=== PATIENT | female | born 1935 | race Caucasian/White ===

== ENCOUNTER 2017-01-17 07:40 | Inpatient (IN) | payer MEDICARE, MEDICAID ==
[2017-01-17 08:57] LABS: Hematocrit 38 % (35-47); Hemoglobin 12.1 g/dl (12.0-16.0); Mean Corpuscular HGB Conc 32 g/dl (31-36); Mean Corpuscular Hemoglobin 24 pg (27-31); Mean Corpuscular Volume 77 fL (80-97); Mean Platelet Volume 9 um3 (7.4-10.4); Red Blood Count 4.95 10^6/ul (4.0-5.4); Red Cell Distribution Width 17 % (10.5-15); White Blood Count 13.1 10^3/ul (3.5-10.8)
[2017-01-17 09:10] LABS: Albumin 3.6 g/dL (3.2-5.2); BUN/Creatinine Ratio 17.5 (8-20); Calcium 9.2 mg/dL (8.6-10.3); EGFR African American 70.5 (>60); EGFR Non-African American 54.8 (>60); Globulin 3.1 g/dL (2-4); Potassium 3.9 mmol/L (3.5-5.0); Total Bilirubin 0.6 mg/dL (0.2-1.0); Total Protein 6.7 g/dL (6.4-8.9)
[2017-01-17 09:11] LABS: Troponin I 0.01 ng/mL (<0.04)
[2017-01-17 09:18] LABS: Urine Bacteria 1+ (Absent); Urine Bilirubin Negative (Negative); Urine Glucose Negative (Negative); Urine Nitrite Negative (Negative)
--- NOTE | 2017-01-17 09:39 | RAD ---
Indication: Stroke. CT of the brain was performed without IV contrast. Ventricular structures are midline. No midline shift is noted. There is atrophy noted. Periventricular lucency consistent with chronic ischemic White matter change is noted. No intracranial mass or hemorrhage is noted. Lacunar infarct is noted in the right basal ganglia which was present previously. There is patchy area of low density left thalamus as well. When compared to previous exam of September 29, 2015. Ventricular lucencies appear similar. Bony calvaria and mastoid air cells are unremarkable. IMPRESSION: Chronic ischemic changes without change since previous exam of September 21, 2015. No evidence of hemorrhage is noted.
--- NOTE | 2017-01-17 10:47 | ED ---
Mary Kate Matias Michael, scribed for Moy Watkins MD on 01/17/17 at 0814 . Altered Mental Status - HPI Summary HPI Summary: 81 y/o female was BIBA to the ED presenting with AMS that started one day ago. The pt has had acute left sided weakness that started one day ago. She was evaluated by a the [facility] doctor. The ED is awaiting the results of her Urine and CBC that the [facility] conducted. The pt responds to voice and follow commands, but she cannot move her left side. The PMHx is significant for unspecified CVA and CAD. - History Of Current Complaint Chief Complaint: EDAltMentalStatus Stated Complaint: AMS Time Seen by Provider: 01/17/17 08:12 Hx Obtained From: Patient, Medical Records Hx From Patient Unobtainable Due To: Altered Mental Status Onset/Duration: Suddenly Timing: Constant, Lasting Days Severity Initially: Moderate Severity Currently: Moderate Character: Responsiveness Aggravating Factor(s): Unknown Alleviating Factor(s): Nothing Associated Signs And Symptoms: Positive: Weakness - Allergies/Home Medications Allergies/Adverse Reactions: Allergies Allergy/AdvReac Type Severity Reaction Status Date / Time Diltiazem [Cardizem] Allergy Unknown Verified 09/21/16 11:40 Reaction Details PMH/Surg Hx/FS Hx/Imm Hx Endocrine/Hematology History: Reports: Hx Diabetes - NIDDM, Hx Thyroid Disease Cardiovascular History: Reports: Hx Congestive Heart Failure, Hx Coronary Artery Disease, Hx Hypercholesterolemia, Hx Hypertension Respiratory History: Reports: Hx Chronic Obstructive Pulmonary Disease (COPD) Musculoskeletal History: Reports: Hx Back Problems Sensory History: Reports: Hx Contacts or Glasses Opthamlomology History: Reports: Hx Contacts or Glasses - Surgical History Surgery Procedure, Year, and Place: hysterectomy, tonsilectomy, left inguinal hernia repair, Hx tracheostomy Infectious Disease History: Unable to Obtain/Confirm Infectious Disease History: Denies: Traveled Outside the [place] in Last 30 Days - Family History Known Family History: Positive: Cardiac Disease - Social History Occupation: Retired Lives: At [facility] Alcohol Use: None Substance Use Type: Reports: None Smoking Status (MU): Never Smoked Tobacco Review of Systems Negative: Fever Positive: Weakness All Other Systems Reviewed And Are Negative: Yes Physical Exam Triage Information Reviewed: Yes Vital Signs On Initial Exam: Initial Vitals Temp Pulse Resp BP Pulse Ox 98.8 F 107 20 135/73 100 01/17/17 07:43 01/17/17 07:43 01/17/17 07:43 01/17/17 07:43 01/17/17 07:43 Vital Signs Reviewed: Yes Appearance: Positive: Well-Appearing, No Pain Distress, Well-Nourished Skin: Positive: Warm, Skin Color Reflects Adequate Perfusion, Dry Head/Face: Positive: Normal Head/Face Inspection Eyes: Positive: Normal ENT: Positive: Normal ENT inspection Neck: Positive: Supple, Nontender Respiratory/Lung Sounds: Positive: Clear to Auscultation, Breath Sounds Present Cardiovascular: Positive: Tachycardia Abdomen Description: Positive: Nontender, Soft Bowel Sounds: Positive: Present Musculoskeletal: Positive: Normal Neurological: Positive: Other - stuporous. follows verbal commands.. Negative: Sensory/Motor Intact - unable to move her left side. AVPU Assessment: Verbal (Reponds To) - Bee Coma Scale Coma Scale Total: 12 Diagnostics - Vital Signs Vital Signs Temp Pulse Resp BP Pulse Ox 01/17/17 07:43 98.8 F 107 20 135/73 100 - Laboratory Lab Results: Lab Results 01/17/17 01/17/17 01/17/17 Range/Units 08:40 08:40 08:40 WBC 13.1 H (3.5-10.8) 10^3/ul RBC 4.95 (4.0-5.4) 10^6/ul Hgb 12.1 (12.0-16.0) g/dl Hct 38 (35-47) % MCV 77 L (80-97) fL MCH 24 L (27-31) pg MCHC 32 (31-36) g/dl RDW 17 H (10.5-15) % Plt Count 306 (150-450) 10^3/ul MPV 9 (7.4-10.4) um3 Neut % (Auto) 89.8 H (38-83) % Lymph % (Auto) 4.6 L (25-47) % [place] % (Auto) 5.0 (1-9) % Eos % (Auto) 0.2 (0-6) % Baso % (Auto) 0.4 (0-2) % Absolute Neuts (auto) 11.7 H (1.5-7.7) 10^3/ul Absolute Lymphs (auto) 0.6 L (1.0-4.8) 10^3/ul Absolute Monos (auto) 0.6 (0-0.8) 10^3/ul Absolute Eos (auto) 0 (0-0.6) 10^3/ul Absolute Basos (auto) 0.1 (0-0.2) 10^3/ul Absolute Nucleated RBC 0 10^3/ul Nucleated RBC % 0 INR (Anticoag Therapy) (0.89-1.11) Sodium 134 (133-145) mmol/L Potassium 3.9 (3.5-5.0) mmol/L Chloride 95 L (101-111) mmol/L Carbon Dioxide 31 (22-32) mmol/L Anion Gap 8 (2-11) mmol/L BUN 17 (6-24) mg/dL Creatinine 0.97 H (0.51-0.95) mg/dL Est GFR ( Amer) 70.5 (>60) Est GFR (Non-Af Amer) 54.8 (>60) BUN/Creatinine Ratio 17.5 (8-20) Glucose 118 H (70-100) mg/dL Lactic Acid 1.1 (0.5-2.0) mmol/L Calcium 9.2 (8.6-10.3) mg/dL Total Bilirubin 0.60 (0.2-1.0) mg/dL AST 14 (13-39) U/L ALT 10 (7-52) U/L Alkaline Phosphatase 90 (34-104) U/L Troponin I 0.01 (<0.04) ng/mL Total Protein 6.7 (6.4-8.9) g/dL Albumin 3.6 (3.2-5.2) g/dL Globulin 3.1 (2-4) g/dL Albumin/Globulin Ratio 1.2 (1-3) Urine Color Urine Appearance Urine pH (5-9) Ur Specific [place] (1.010-1.030) Urine Protein (Negative) Urine Ketones (Negative) Urine Blood (Negative) Urine Nitrate (Negative) Urine Bilirubin (Negative) Urine Urobilinogen (Negative) Ur Leukocyte Esterase (Negative) Urine WBC (Auto) (Absent) Urine RBC (Auto) (Absent) Ur Squamous Epith Cells (Absent) Urine Bacteria (Absent) Urine Glucose (Negative) 01/17/17 01/17/17 Range/Units 08:40 08:46 WBC (3.5-10.8) 10^3/ul RBC (4.0-5.4) 10^6/ul Hgb (12.0-16.0) g/dl Hct (35-47) % MCV (80-97) fL MCH (27-31) pg MCHC (31-36) g/dl RDW (10.5-15) % Plt Count (150-450) 10^3/ul MPV (7.4-10.4) um3 Neut % (Auto) (38-83) % Lymph % (Auto) (25-47) % [place] % (Auto) (1-9) % Eos % (Auto) (0-6) % Baso % (Auto) (0-2) % Absolute Neuts (auto) (1.5-7.7) 10^3/ul Absolute Lymphs (auto) (1.0-4.8) 10^3/ul Absolute Monos (auto) (0-0.8) 10^3/ul Absolute Eos (auto) (0-0.6) 10^3/ul Absolute Basos (auto) (0-0.2) 10^3/ul Absolute Nucleated RBC 10^3/ul Nucleated RBC % INR (Anticoag Therapy) 1.05 (0.89-1.11) Sodium (133-145) mmol/L Potassium (3.5-5.0) mmol/L Chloride (101-111) mmol/L Carbon Dioxide (22-32) mmol/L Anion Gap (2-11) mmol/L BUN (6-24) mg/dL Creatinine (0.51-0.95) mg/dL Est GFR ( Amer) (>60) Est GFR (Non-Af Amer) (>60) BUN/Creatinine Ratio (8-20) Glucose (70-100) mg/dL Lactic Acid (0.5-2.0) mmol/L Calcium (8.6-10.3) mg/dL Total Bilirubin (0.2-1.0) mg/dL AST (13-39) U/L ALT (7-52) U/L Alkaline Phosphatase (34-104) U/L Troponin I (<0.04) ng/mL Total Protein (6.4-8.9) g/dL Albumin (3.2-5.2) g/dL Globulin (2-4) g/dL Albumin/Globulin Ratio (1-3) Urine Color Yellow Urine Appearance Clear Urine pH 6.0 (5-9) Ur Specific [place] 1.005 L (1.010-1.030) Urine Protein Negative (Negative) Urine Ketones Negative (Negative) Urine Blood 1+ H (Negative) Urine Nitrate Negative (Negative) Urine Bilirubin Negative (Negative) Urine Urobilinogen Negative (Negative) Ur Leukocyte Esterase Trace H (Negative) Urine WBC (Auto) Trace(0-5/hpf) (Absent) Urine RBC (Auto) Trace(0-2/hpf) (Absent) Ur Squamous Epith Cells Present H (Absent) Urine Bacteria 1+ H (Absent) Urine Glucose Negative (Negative) Result Diagrams: 01/17/17 08:40 01/17/17 08:40 Lab Statement: Any lab studies that have been ordered have been reviewed, and results considered in the medical decision making process. - CT Brain CT CT Interpretation: No Acute Changes - Chronic ischemic changes without change since previous exam of September 21, 2015. No evidence of hemorrhage is noted. CT Interpretation Completed By: Radiologist - EKG EK EKG Rhythm: Sinus Tachycardia - boarderline tachycardia-100 bpm EKG Interpretation: RBBB Altered Mental Statu Course/Dx - Course Course Of Treatment: Discussed patient care with Dr. Jason (Hospitalist) at 1027. The patient will be admitted to [facility]. - Diagnoses Discharge Diagnoses: CVA (cerebral vascular accident) - Critical Care Time Critical Care Time: 30-74 min Discharge - Discharge Plan Condition: Stable Disposition: ADMITTED TO [facility] Discharge Disposition Comment: Pt is admitted to [facility] by Dr. Jason Referrals: Erasto Morse MD [Primary Care Provider] - The documentation as recorded by the Mary Kate pacheco Michael accurately reflects the service I personally performed and the decisions made by , Moy Watkins MD.
[2017-01-17] MEDS ORDERED: Acetaminophen TAB* 325 MG PO PRN (11:24)
[2017-01-17] MEDS ORDERED: Furosemide IV* 10 MG/ML 10 ML VIAL (100 MG) IV ONE (11:24)
[2017-01-17] MEDS ORDERED: Albuterol/Ipratropium NEB.SOL* Albuterol 2.5 MG/Ipratropium 0.5 MG 3 ML INH PRN (11:24)
[2017-01-17] MEDS ORDERED: Dextrose 50% Syringe 50 ML* 25 GM/50 ML SYRINGE IV PUSH PRN (11:29)
[2017-01-17] MEDS ORDERED: Insulin GLARGINE(*) 1 UNITS UNIT SUBCUT SCH (12:00)
--- NOTE | 2017-01-17 12:10 | RAD ---
Indication: CHF. Single frontal view of the chest performed at 1148 hours was reviewed. Comparison is made with previous exam dated September 21, 2016. Cardiomegaly is noted. Mild interstitial prominence likely representing mild vascular congestion is noted. No pleural fluid is identified. IMPRESSION: CARDIOMEGALY WITH LIKELY MILD VASCULAR CONGESTION.
[2017-01-17] MEDS: Insulin LISPRO* 1 UNITS UNIT SUBCUT SCH ×3 (13:28→17:31)
[2017-01-17] MEDS: Heparin VIAL(*) 5000 UNITS/ML VIAL (FIVE THOUSAND) SUBCUT SCH ×2 (13:42→22:12)
[2017-01-17] MEDS: Morphine INJ* 2 MG/ML 1 ML SYRINGE IV PRN ×3 (13:43→23:27)
[2017-01-17] MEDS: Furosemide IV* 10 MG/ML 2 ML VIAL (20 MG) IV SLOW PU SCH (13:43)
--- NOTE | 2017-01-17 14:33 | HP ---
CC: Dr. Flynn; Dr. Morse HISTORY AND PHYSICAL: DATE OF ADMISSION: 01/17/17 PRIMARY CARE PROVIDER: Dr. Morse, [facility]. CHIEF COMPLAINT: Shortness of breath and left-sided weakness. HISTORY OF PRESENT ILLNESS: Nelli Mcfadden is an 81-year-old female who has history of remote CVA, which was right hemispheric and caused left-sided weakness in 2011. When she was evaluated in 2014 by a neurologist at our facility due to episodes of aphasia, she was noted to have symmetrical strength in bilateral upper extremities. Today she presented with left-sided weakness. She has noticed to have left- sided weakness upon awakening by the staff at [facility]. From their notes, also it was noted that the patient has complained of shortness of breath and leg swelling for the past couple of days. She is on oxygen at 2 L. She was also placed on Lovenox for DVT prophylaxis due to possibility of DVT since her legs had gotten swollen. She also received a dose of 80 mg of Lasix on 01/16/17 in addition to her usual 20 mg dose. The patient today complains of being feeling scared. She also complains of shortness of breath. She is a poor historian but she notes that her left-sided weakness is new. She is going to be admitted with diagnosis of CVA. She most likely has underlying CHF also. PAST MEDICAL HISTORY: 1. CVA. Right hemispheric stroke in July 2012 with left-sided weakness. 2. Hypertension. 3. Diabetes. 4. Hypothyroidism. 5. History of CHF with most recent echo obtained at our facility in September 2015 showing EF of 60% to 65% and diastolic dysfunction. 6. History of COPD, on 2 L of oxygen. 7. History of endometrial hemorrhage, resulting in hysterectomy in her 20s. During that time, patient also had tracheostomy. 8. History of tonsillectomy. 9. Left inguinal hernia repair. 10. Hyperlipidemia. MEDICATIONS: The patient is getting at [facility], those are: 1. Lipitor 10 mg daily. 2. Fosamax 35 mg weekly. 3. Enoxaparin 60 mg every 24 hours that was started on 01/16/17, for possible DVT. 4. Furosemide usual dose 20 mg daily. The patient received another 80 mg daily dose on 01/16/17. 5. Hydrochlorothiazide 25 mg daily. 6. Vitamin D3 50,000 units monthly. 7. Metformin 500 mg daily. 8. Acetaminophen on p.r.n. basis. 9. Albuterol inhaler on a p.r.n. basis. 10. Artificial Tear ointment 1 application to both eyes at bedtime. 11. Budesonide 0.5 mg inhalation b.i.d. 12. Plavix 75 mg daily. 13. Pepcid 20 mg daily. 14. Flonase 2 sprays nasally daily. 15. Insulin glargine 24 units daily. 16. Levothyroxine 125 mg daily. ALLERGIES: Unknown response to CARDIZEM. FAMILY HISTORY: Positive for father who in his 60s of heart disease. Mother of questionable CHF. Brother with history of alcoholism, in his 70s. REVIEW OF SYSTEMS: Very limited in this patient who appears anxious. She is also a poor historian. She complains of shortness of breath and leg swelling. She complaints of left-sided weakness. She complains also of back pain. All the remaining 14 systems were reviewed with the patient and were otherwise negative. PHYSICAL EXAMINATION GENERAL: The patient is an 81-year-old female who is lying in bed. She is slightly anxious appearing. The patient is in no acute distress. The patient is able to tell me that the year is 1999 but it is 2005 according to her. She is able to tell me that she is 81 years old and she is born in [birth year]. She also is able to tell me that she is a resident of [facility] and she wants me to contact "Ivelisse." It appears from the documentation that the patient's healthcare proxy is a person with the first name of Reba. VITAL SIGNS: Blood pressure 138/63, heart rate of 94 and regular, respiratory rate 20 breaths, temperature 98.8, heart rate of 95. HEENT: Head: Atraumatic, normocephalic. Noticeable left facial droop. Eyes: Extraocular muscles appear to have right gaze preference but the patient is able to move her head to the left to compensate. Oropharynx with moist mucosa. NECK: Supple. No JVD. No bruits bilaterally. RESPIRATORY: Crackles at bilateral bases. CARDIOVASCULAR: Regular rate and rhythm. No murmur. ABDOMEN: Protuberant, soft, nontender. Bowel sounds present in all 4 quadrants. EXTREMITIES: What appears to be chronic lymphedema with chronic venous stasis erythema and changes at bilateral lower extremities. The skin below the knees is red and flaky. There is no evidence of cellulitis, though.Poorly palpable pedal pulses due to edema, feet are very well perfused bilaterally. NEUROLOGIC: The patient has left-sided facial droop, slight dysarthria, left- sided hemineglect. She is unable to do a hand fitter up on the left, but she appears to have some residual left-sided proximal strength in her left shoulder. On the left lower extremity she is able to move her toes. She is unable to raise her leg. There are no deficits noted on the right. Apart from her deconditioning and leg edema, she is unable to hold her leg for 5 seconds above the bed level. SKIN: Upon evaluation of skin, venous stasis changes and erythema in bilateral lower extremities. PSYCHIATRIC: Poor historian, oriented to self and location, not oriented to date. LABORATORY DATA: White blood cell count 13.1, hemoglobin 12.1, hematocrit 38, MCV 77, platelets 306. INR of 1.05 . Sodium of 135, potassium 3.9, chloride 95 , carbon dioxide 31, BUN 17, creatinine 0.9. Liver functions were unremarkable. Troponin of 0.01. Urinalysis positive for trace blood, trace esterase, trace bacteria but no white blood cells. CT of the abdomen, impression: "chronic ischemic changes without change since previous exam September 21. No evidence of hemorrhage is noted." The patient's EKG shows sinus tachycardia with a heart rate of 100 beats per minute with right bundle branch block. That is similar from an EKG from 2015. The patient's portable chest x-ray is pending at the time of this dictation. ASSESSMENT AND PLAN: 1. Patient appears to have another occurrence of ischemic cerebrovascular accident affecting the left side with resulting and left-sided hemineglect and left-sided hemiplegia. Due to speech therapy not available over the weekend, we will ask nursing to perform bedside swallow evaluation to allow patient to have clear liquid diet for the time being. The patient is also going to be evaluated by Physical Therapy, Occupational Therapy. I asked Dr. Flynn to see the patient in consultation from Neurology. For the time being, patient is going to be continued on Plavix. She most likely would need CTA of the head and neck, with which she is not comfortable with since she complained of shortness of breath and dyspnea due to congestive heart failure. I will order carotid Dopplers. I will also obtain transthoracic echocardiogram. Neuro checks are going to be obtained every 4hours. Fasting lipid profile is also going to be obtained. 2. In regards to the patient's history of diastolic congestive heart failure, her EF was noted to be 65% in 2014 . The patient appears in another bout of acute on chronic congestive heart failure. She received 80 mg of p.o. Lasix yesterday in addition to her usual 20 mg dose and she was noted to have leg edema in the past several days and complained of more shortness of breath despite her chronic oxygen use at 2 L. At this point, transthoracic echocardiogram is going to be obtained. The patient is also going to be observed on telemetry monitored bed. Due to her cerebrovascular accident, she is going to be placed on and treated once with very gentle dose of Lasix at 20 mg IV x1. I will also place the patient on daily weights. 3. In regards to the patient's diabetes, patient is going to be continued on her insulin lantus. Glucophage is going to be held. She is also going to be placed on lispro sliding scale. 4. For dyslipidemia, atorvastatin is going to be continued, fasting lipid profile is going to be obtained in the morning. 5 For her hypothyroidism, Synthroid is going to be continued at the same dose. 6. In regards to possible chronic obstructive pulmonary disease, currently the patient does not appear to be in exacerbation. She is usually on 2 L of oxygen at home, which is going to be continued. We will also continue nebulizer treatments on a p.r.n. basis. 7. In regards to the patient's code status, patient's healthcare proxy is Reba Alvarez. I tried to call Reba and there was no answer. For the time being, the patient has a MOLST signed by herself in the past that indicates DNR, but okay for intubation. That is going to be continued until we are able to contact patient's healthcare proxy. TIME SPENT: Approximately 75 minutes were spent on the admission of this patient, more than half that time was spent [id number] with the patient during the interview and physical exam. [id number]/[facility] #: [id number] [facility]
--- NOTE | 2017-01-17 14:57 | CONS ---
NEUROLOGY CONSULTATION: DATE OF CONSULT: 01/17/17 LOCATION: The patient is in the emergency department. REQUESTING PHYSICIAN: Dora Porras MD REASON FOR CONSULT: Possible new stroke. HISTORY OF PRESENT ILLNESS: Nelli Mcfadden is an 81-year-old woman with a history of multiple medical problems including a past right lacunar stroke, hyperlipidemia, gastroesophageal reflux disease, hypertension as well as diabetes who presented to the emergency department after apparently being found at her nursing facility with left-sided weakness and shortness of breath. The history is primarily obtained from review of records and discussion with Dr. Porras. Apparently, the patient complained of some shortness of breath overnight according to nursing notes from [facility], but at approximately 2 a.m., notes indicate that she was feeling better. EMS notes from 7 a.m. then indicate that she had left- sided weakness as well as shortness of breath and so the last assumed time known normal was at 2 o'clock this morning. Prior to that, she had complained of some shortness of breath and notes indicate that she was weak, but does not indicate if she was preferentially weak on one side of her body. When Dr. Porras evaluated her here in the emergency department, she noted that she had some left facial weakness as well as left arm and leg weakness and asked me to evaluate her. When I speak with the patient, she denies that she has had a stroke in the past. She indicates that she is cold and asks to be covered up multiple times. She is dysarthric and very difficult to understand. She asks for someone named Jennifer to be called and appears fearful of her condition. She denies any pain currently. She does state that she thinks she is here because she has had a stroke, but when asked why she feels that way, she indicates that her back hurts. PAST MEDICAL HISTORY: 1. Stroke in July 2012 with left-sided weakness. 2. Hypertension. 3. Diabetes. 4. Hypothyroidism. 5. Congestive heart failure. 6. COPD. CURRENT MEDICATIONS: Taken from the MAR provided by the facility and include: 1. Atorvastatin 10 mg daily. 2. Plavix 75 mg daily. 3. Famotidine 20 mg daily. 4. Flonase nasal spray daily. 5. Furosemide 20 mg daily. 6. Lantus 20 units once a day, which was changed to 24 units once daily on the . 7. Levothyroxine 125 mcg daily. 8. Metformin 500 mg daily, which was discontinued on the . 9. Budesonide twice daily. 10. Metformin 500 mg twice daily. 11. Acetaminophen p.r.n. 12. Lovenox given on 01/16/17. 13. Hydrochlorothiazide 25 mg given on 01/16/17 for lower extremity edema and Lasix 80 mg given on 01/16/17 for lower extremity edema. ALLERGIES: Chart lists an allergy to CARDIZEM. FAMILY HISTORY: Father with heart disease. REVIEW OF SYSTEMS: As per the HPI. PHYSICAL EXAM: Vital Signs: Temperature 98.8, blood pressure 138/63 with a heart rate of 94 and oxygen saturation of 97%. The most recent blood pressure taken at 11:30 a.m. was 107/80. On general examination, Ms. Mcfadden was initially resting with her eyes closed when I entered the room and roused easily to voice. She indicates that she is cold, though she is covered by 2 blankets. She has very dry mucous membranes. She is of short stature and has significant edema of her bilateral lower extremities, which are also red with flaky skin and fungal overgrowth of the toenails. Her heart was in a normal rhythm, but tachycardic, with no obvious murmurs. Lungs auscultated anteriorly, appeared clear. There were no obvious carotid bruits. On neurologic examination, she is quite dysarthric and difficult to understand. She was oriented to the month, but indicated the year was 2011. She indicated the President was [place]. She had difficulty describing the objects on the stroke cards or interpreting the Truli theft picture, but was able to accurately name a ring, a thumb and a pen. She had some difficulty following commands of the examination. On cranial nerve examination, she actively resists eye opening and is stronger in the right than the left eye. Funduscopic exam was not able to be performed for this reason, but pupils appeared equal and responsive to light. She had a right gaze preference and was able to come to the midline and possibly slightly past the midline towards the left, but she had great difficulty following this portion of the exam as described. In addition, she continually closed her eyes and when asked to open them, indicated that they were. There was no obvious blink to threat in the left upper or lower visual becker, but the right was intact. She had left lower facial weakness when she attempted to smile and show her teeth. The tongue protruded in the midline, the palate was not observable. Motor examination shows increased tone in the left upper extremity, which is held in flexion at the elbow. She is unable to really raise that arm off the bed antigravity and is unable to sanitary plumber. The right arm is at least antigravity strength, but she is generally debilitated and not able to give full resistance on that side either. She does not lift either leg off the bed for me, but is able to wiggle the toes on the right foot much more briskly than the left foot. The left leg is slightly externally rotated. She is aware of being touched in all 4 extremities , but when touched in her left leg, she indicated I was touching her right leg. Reflexes were 2+ in the upper and lower extremities with an upgoing toe on the left. She was not able to participate with [id number] or [id number] testing. I did not attempt to ambulate her. DIAGNOSTIC STUDIES/LAB DATA: Reviewed include the CBC, which is notable for an elevated white count of 13.1 with 89% neutrophils and absolute neutrophil count that is elevated at 11.7. MCV is low at 77 and MCH is low at 24 with an increased RDW of 17. Chemistry panel is notable for a slightly low creatinine of 0.97, slightly low chloride of 95 and glucose of 118. Liver functions are normal. Albumin is 3.6. Urinalysis shows 1+ blood, trace leukocyte esterase, trace wbc's, negative nitrites and 1+ bacteria, but also squamous epithelial cells present. INR is 1.05. Noncontrast head CT was personally reviewed and shows old lacunar infarct in the right basal ganglia as well as evidence of hypodensities in the periventricular white matter bilaterally as well as some global atrophy. 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 Dr. Paul had seen the patient previously in 2014 and many of the findings described above are new compared with her exam in September 2015. In particular, she had no visual field defect nor facial weakness or left upper extremity weakness at that time. I am concerned that she may have had a new right hemispheric infarction. Unfortunately, she is not a candidate for TPA given the unclear time of her last being known well with the best we can gather to be 2 a.m. this morning, which puts her out of the 3-hour window. Another possibility for her presentation is an anamnestic response given that Dr. Porras feels that she is likely in congestive heart failure. PLAN/RECOMMENDATIONS: She will be admitted to the hospitalist service and will undergo echocardiogram as well as carotid Dopplers and assessment of her lipids as well as hemoglobin A1c if it has not been done recently. She will be monitored on telemetry for any signs of atrial fibrillation. We should follow her over in the next couple of days as her congestive heart failure is treated and see whether she returns to her typical neurologic baseline or not. A followup head CT could be performed in the next 24 to 48 hours to assess for any evolving infarction as well. At this point, I would keep her on Plavix as we see how she progresses over the next couple of days, as long as she passes a swallow evaluation. However, if this is a new stroke and no atrial fibrillation is detected or other reason to consider anticoagulation, then she should probably be changed over to Aggrenox and Plavix discontinued. Thank you for this consultation. [id number]/[facility] #: [id number] LYNNE
[2017-01-17] MEDS ORDERED: NS 0.9% 1000 ML* 1,000 ML IV SCH (16:45)
[2017-01-17] MEDS: Aspirin SUPP* 300 MG PR SCH (18:05)
[2017-01-17] MEDS ORDERED: Atorvastatin* 10 MG TAB PO SCH (21:00)
[2017-01-17] MEDS ORDERED: Famotidine TAB* 20 MG PO SCH (21:00)
[2017-01-17] MEDS: Budesonide NEB* 0.5 MG/2 ML NEB.SOLN INH SCH (21:18)
[2017-01-17] MEDS: Albuterol 2.5 MG/3 ML NEB.SOL* (0.083%) INH SCH (21:18)
[2017-01-17] MEDS ORDERED: ALPRAZolam TAB* 0.5 MG PO PRN (21:55)
[2017-01-17] MEDS: Artificial Tear OPHTH.OINT* 3.5 GM BOTH EYES SCH (22:22)
[2017-01-17] MEDS ORDERED: LORazepam INJ* 2 MG/ML 1 ML VIAL IV PUSH ONE (22:26)
[2017-01-18] MEDS: Insulin LISPRO* 1 UNITS UNIT SUBCUT SCH ×3 (01:10→13:32)
[2017-01-18] MEDS: Heparin VIAL(*) 5000 UNITS/ML VIAL (FIVE THOUSAND) SUBCUT SCH ×2 (05:55→13:44)
[2017-01-18] MEDS ORDERED: Levothyroxine INJ* 100 MCG/5 ML VIAL IV SCH (06:00)
[2017-01-18 07:16] LABS: Hematocrit 34 % (35-47); Hemoglobin 10.7 g/dl (12.0-16.0); Mean Corpuscular HGB Conc 32 g/dl (31-36); Mean Corpuscular Hemoglobin 24 pg (27-31); Mean Corpuscular Volume 77 fL (80-97); Mean Platelet Volume 9 um3 (7.4-10.4); Red Cell Distribution Width 16 % (10.5-15); White Blood Count 11.2 10^3/ul (3.5-10.8)
[2017-01-18 07:31] LABS: BUN/Creatinine Ratio 18.7 (8-20); Calcium 8.4 mg/dL (8.6-10.3); EGFR African American 75.9 (>60); HDL Cholesterol 47.8 mg/dL; Potassium 3.8 mmol/L (3.5-5.0)
[2017-01-18] MEDS ORDERED: Clopidogrel TAB* 75 MG PO SCH (09:00)
[2017-01-18] MEDS ORDERED: Levothyroxine TAB* 125 MCG TAB PO SCH (09:00)
[2017-01-18] MEDS ORDERED: Pantoprazole IV* 40 MG IV SCH (09:00)
[2017-01-18] MEDS: Budesonide NEB* 0.5 MG/2 ML NEB.SOLN INH SCH ×2 (09:07→19:58)
[2017-01-18] MEDS: Albuterol 2.5 MG/3 ML NEB.SOL* (0.083%) INH SCH ×2 (09:07→19:58)
[2017-01-18] MEDS: Furosemide IV* 10 MG/ML 2 ML VIAL (20 MG) IV SLOW PU SCH (09:23)
[2017-01-18] MEDS: Fluticasone NASAL SPRAY 50MCG* 16 gm SPRAY BTL NASAL SCH (09:23)
[2017-01-18] MEDS: Aspirin SUPP* 300 MG PR SCH (09:23)
--- NOTE | 2017-01-18 10:09 | ECHO ---
Amended Report Patient: MARY LOU LOPEZ [facility] Rec#: [id number] : 1935 Date: 01/18/2017 Age: 81y Height: 147.32 cm / 58.0 in Weight: 77.11 kg / 170.0 lbs Sex: F BSA: 1.7 Room#: 440 Admit Date#: 01/17/2017 Type: Inpatient Referring: Dora Porras MD Reading: Trevor Mayes DO CC: Jalyn Flynn CC: Erasto Morse MD Transthoracic Echocardiogram Indication: CVA BP: 113/54 HR: 90 Rhythm: NSR Findings History: CVA 2011,HTN,DM,hypothyroid,CHF,COPD,HLD. Technical Comments: The study is technically limited due to the patient's history of COPD. Completed at 0940. Left Ventricle: The left ventricular chamber size is decreased. There is no left ventricular hypertrophy. Global left ventricular wall motion and contractility are within normal limits. There is normal left ventricular systolic function. The estimated ejection fraction is 60-65%. Abnormal left ventricular diastolic filling is observed, consistent with impaired relaxation. Left Atrium: The left atrium is mildly dilated. Right Ventricle: The right ventricular chamber size and systolic function are within normal limits. Right Atrium: The right atrial cavity size is normal. There is no patent foramen ovale visualized. A patent foramen ovale is not demonstrated with color Doppler and agitated contrast. Aortic Valve: The aortic valve is trileaflet. The aortic valve leaflets are mildly thickened. There is trace to mild aortic regurgitation. There is no evidence of aortic stenosis. Mitral Valve: Mild mitral annular calcification present. There is a trace of mitral regurgitation. There is no evidence of mitral stenosis. Tricuspid Valve: The tricuspid valve leaflets are normal. There is trace tricuspid regurgitation. There is evidence of mild pulmonary hypertension. There is no tricuspid stenosis. Pulmonic Valve: The pulmonic valve structure is not well visualized. There is no evidence of pulmonic regurgitation. There is no pulmonic stenosis. Pericardium: There is no significant pericardial effusion. Aorta: There is no dilatation of the ascending aorta. The aortic arch is not well visualized. There is no dilation of the aortic root. Pulmonary Artery: The main pulmonary artery is not well visualized. Venous: The venous system is not well visualized. Contrast: Normal saline was used as contrast for the bubble study. Intravenous contrast was used to help determine presence of intracardiac shunting. Conclusions The left ventricular chamber size is decreased. There is no left ventricular hypertrophy. There is normal left ventricular systolic function. The estimated ejection fraction is 60-65%. Global left ventricular wall motion and contractility are within normal limits. The left atrium is mildly dilated. The right ventricular chamber size and systolic function are within normal limits. No significant valvular abnormalities noted There is evidence of mild pulmonary hypertension. Negative bubble study No significant changes since prior study from 09/2015 except bubble study now performed Measurements Name Value Normal Range RVIDd (AP) 2D 1.8 cm (0.9 - 2.6) RVDdMajor (2D) 2.6 cm (2.2 - 4.4) RAd ISD 4CH 4.3 cm (3.4 - 4.9) RA (A4C)W 2.2 cm (2.9 - 4.6) IVSd (2D) 0.7 cm (0.6 - 1) LVPWd (2D) 0.9 cm (0.6 - 1) LVIDd (2D) 3.3 cm (3.6 - 5.4) LVIDs (2D) 1.5 cm - LV FS (2D) 53 % (25 - 45) Aortic Annulus 1.6 cm (1.4 - 2.6) Ao root diameter (2D) 2.6 cm (2.1 - 3.5) Ascending Ao 3.2 cm (2.1 - 3.4) LA dimension (AP) 2D 3.9 cm (2.3 - 3.8) LAd ISD 4CH 5.1 cm (2.9 - 5.3) LA ISD 4CH W 3 cm (2.5 - 4.5) Name Value Normal Range LA ESV SP 4CH (A/L) 43 ml - LA ESV SP 2CH (A/L) 47 ml - LA ESV BP (A/L) 45 ml - LA ESV BP (A/L) index 26.39 ml/m2 - LA ESV SP 4CH (MOD) 40 ml - LA ESV SP 2CH (MOD) 44 ml - Name Value Normal Range MV E-wave Vmax 0.9 m/sec - MV deceleration time 183 msec - MV A-wave Vmax 1.1 m/sec - MV E:A ratio 0.77 ratio - LV septal e' Vmax 0.08 m/sec - LV lateral e' Vmax 0.06 m/sec - LV E:e' septal ratio 11.25 ratio - LV E:e' lateral ratio 15 ratio - Name Value Normal Range AV Vmax 1.4 m/sec - AV VTI 29.5 cm - AV peak gradient 8.33 mmHg - AV mean gradient 3.33 mmHg - LVOT Vmax 0.9 m/sec - LVOT VTI 22.1 cm - LVOT peak gradient 3.41 mmHg - LVOT mean gradient 1.55 mmHg - AR PHT 464 msec - AR peak gradient 32.7 mmHg - Name Value Normal Range TR Vmax 3 m/sec - TR peak gradient 35 mmHg - RAP 8 mmHg - RVSP 43 mmHg - Name Value Normal Range PV Vmax 1 m/sec - PV peak gradient 3.62 mmHg -
--- NOTE | 2017-01-18 14:30 | PN ---
Subjective Date of Service: 01/18/17 Interval History: Pt is awake and oriented today. Still unable to swallow. dysarthia is improving Objective Active Medications: Acetaminophen (Tylenol Tab*) 650 mg PO Q4H PRN PRN Reason: FEVER/PAIN Albuterol (Ventolin 2.5 Mg/3 Ml Neb.Jane*) 2.5 mg INH BID [facility] Last Admin: 01/18/17 09:07 Dose: 2.5 mg Albuterol/Ipratropium (Duoneb (Albuterol 2.5 Mg/Ipratropium 0.5 Mg)) 1 neb INH Q6H PRN PRN Reason: SOB/WHEEZING Alprazolam (Xanax Tab*) 0.5 mg PO TID PRN PRN Reason: ANXIETY Artificial Tears (Lacrilube Oint*) 1 applic BOTH EYES BEDTIME [facility] Last Admin: 01/17/17 22:22 Dose: 1 applic Aspirin (Aspirin Supp*) 300 mg [place] DAILY [facility] Last Admin: 01/18/17 09:23 Dose: 300 mg Atorvastatin Calcium (Lipitor*) 10 mg PO BEDTIME [facility] Last Admin: 01/17/17 22:11 Dose: 10 mg Budesonide (Pulmicort Neb*) 0.5 mg INH RT.BID [facility] Last Admin: 01/18/17 09:07 Dose: 0.5 mg Clopidogrel Bisulfate (Plavix Tab*) 75 mg PO DAILY [facility] Last Admin: 01/18/17 09:11 Dose: Not Given Dextrose (D50w Syringe 50 Ml*) 12.5 gm IV PUSH .FOR FS < 60 - SS PRN PRN Reason: FS < 60 Famotidine (Pepcid Tab*) 20 mg PO BEDTIME [facility] Last Admin: 01/17/17 22:11 Dose: 20 mg Fluticasone Propionate (Flonase Nasal [place] 50mcg*) 2 spray NASAL DAILY [facility] Last Admin: 01/18/17 09:23 Dose: 2 spray Furosemide (Lasix Iv*) 20 mg IV SLOW PU DAILY [facility] Last Admin: 01/18/17 09:23 Dose: 20 mg Heparin Sodium (Porcine) (Heparin Vial(*)) 5,000 units SUBCUT Q8HR [facility] Last Admin: 01/18/17 13:44 Dose: 5,000 units Sodium Chloride (Ns 0.9% 1000 Ml*) 1,000 mls @ 50 mls/hr IV .PER RATE [facility] Last Admin: 01/17/17 18:05 Dose: 50 mls/hr Insulin Human Lispro (Humalog*) 0 units SUBCUT Q6HR [facility] PRN Reason: Protocol Last Admin: 01/18/17 13:32 Dose: Not Given Levothyroxine Sodium (Synthroid Inj*) 60 mcg IV 0600 [facility] Last Admin: 01/18/17 05:52 Dose: 60 mcg Morphine Sulfate (Morphine Inj (Syringe)*) 1 mg IV Q4H PRN PRN Reason: PAIN Last Admin: 01/17/17 23:27 Dose: 1 mg Pantoprazole Sodium (Protonix Iv*) 40 mg IV DAILY [facility] Last Admin: 01/18/17 09:22 Dose: 40 mg Vital Signs 01/17/17 01/17/17 01/17/17 14:43 16:02 16:19 Temperature 97.2 F Pulse Rate 98 129 Respiratory 20 16 17 Rate Blood Pressure 151/71 (mmHg) O2 Sat by Pulse 98 93 Oximetry 01/17/17 01/17/17 01/17/17 18:03 19:03 20:00 Temperature Pulse Rate Respiratory 20 20 18 Rate Blood Pressure (mmHg) O2 Sat by Pulse Oximetry 01/17/17 01/17/17 01/17/17 20:40 21:24 22:56 Temperature 98.5 F Pulse Rate 100 100 Respiratory 20 18 20 Rate Blood Pressure 142/56 (mmHg) O2 Sat by Pulse 98 98 Oximetry 01/17/17 01/17/17 01/17/17 23:27 23:36 23:56 Temperature 97.7 F Pulse Rate 101 Respiratory 20 20 20 Rate Blood Pressure 113/54 (mmHg) O2 Sat by Pulse 93 Oximetry 01/18/17 01/18/17 01/18/17 00:27 04:45 07:48 Temperature 97.2 F Pulse Rate 81 92 Respiratory 20 20 16 Rate Blood Pressure 126/48 150/57 (mmHg) O2 Sat by Pulse 94 96 Oximetry 01/18/17 01/18/17 01/18/17 08:00 09:11 11:36 Temperature 98.0 F Pulse Rate 70 90 Respiratory 16 16 18 Rate Blood Pressure 139/80 (mmHg) O2 Sat by Pulse 94 99 Oximetry Oxygen Devices in Use Now: Nasal Cannula - at 5L Appearance: 81 yo f in NAd, aAOx3, with dysarthia, left hemineglect Eyes: No Scleral Icterus, PERRLA Ears/Nose/Mouth/Throat: NL Teeth, Lips, Gums, Mucous Membranes Moist Neck: NL Appearance and Movements; NL JVP, Trachea Midline Respiratory: Symmetrical Chest Expansion and Respiratory Effort, - - crackles at b/l bases Cardiovascular: NL Sounds; No Murmurs; No JVD, RRR Abdominal: NL Sounds; No Tenderness; No Distention Lymphatic: No Cervical Adenopathy Extremities: No Clubbing, Cyanosis, - - b/l lymphoedema-improving Skin: No Nodules or Sclerosis, - - venous stasis dermatitis b/l distal legs Neurological: Alert and Oriented x 3, - - left hemoplegia, L hemineglect, dysarthia. able to move toes - l leg.L arm distally-flaccid Result Diagrams: 01/18/17 07:01 01/18/17 07:01 Additional Lab and Data: Lab Results 01/17/17 01/17/17 01/17/17 Range/Units 08:40 08:40 08:40 WBC 13.1 H (3.5-10.8) 10^3/ul RBC 4.95 (4.0-5.4) 10^6/ul Hgb 12.1 (12.0-16.0) g/dl Hct 38 (35-47) % MCV 77 L (80-97) fL MCH 24 L (27-31) pg MCHC 32 (31-36) g/dl RDW 17 H (10.5-15) % Plt Count 306 (150-450) 10^3/ul MPV 9 (7.4-10.4) um3 Neut % (Auto) 89.8 H (38-83) % Lymph % (Auto) 4.6 L (25-47) % [place] % (Auto) 5.0 (1-9) % Eos % (Auto) 0.2 (0-6) % Baso % (Auto) 0.4 (0-2) % Absolute Neuts (auto) 11.7 H (1.5-7.7) 10^3/ul Absolute Lymphs (auto) 0.6 L (1.0-4.8) 10^3/ul Absolute Monos (auto) 0.6 (0-0.8) 10^3/ul Absolute Eos (auto) 0 (0-0.6) 10^3/ul Absolute Basos (auto) 0.1 (0-0.2) 10^3/ul Absolute Nucleated RBC 0 10^3/ul Nucleated RBC % 0 INR (Anticoag Therapy) (0.89-1.11) Sodium 134 (133-145) mmol/L Potassium 3.9 (3.5-5.0) mmol/L Chloride 95 L (101-111) mmol/L Carbon Dioxide 31 (22-32) mmol/L Anion Gap 8 (2-11) mmol/L BUN 17 (6-24) mg/dL Creatinine 0.97 H (0.51-0.95) mg/dL Est GFR ( Amer) 70.5 (>60) Est GFR (Non-Af Amer) 54.8 (>60) BUN/Creatinine Ratio 17.5 (8-20) Glucose 118 H (70-100) mg/dL Lactic Acid 1.1 (0.5-2.0) mmol/L Calcium 9.2 (8.6-10.3) mg/dL Total Bilirubin 0.60 (0.2-1.0) mg/dL AST 14 (13-39) U/L ALT 10 (7-52) U/L Alkaline Phosphatase 90 (34-104) U/L Troponin I 0.01 (<0.04) ng/mL Total Protein 6.7 (6.4-8.9) g/dL Albumin 3.6 (3.2-5.2) g/dL Globulin 3.1 (2-4) g/dL Albumin/Globulin Ratio 1.2 (1-3) Urine Color Urine Appearance Urine pH (5-9) Ur Specific [place] (1.010-1.030) Urine Protein (Negative) Urine Ketones (Negative) Urine Blood (Negative) Urine Nitrate (Negative) Urine Bilirubin (Negative) Urine Urobilinogen (Negative) Ur Leukocyte Esterase (Negative) Urine WBC (Auto) (Absent) Urine RBC (Auto) (Absent) Ur Squamous Epith Cells (Absent) Urine Bacteria (Absent) Urine Glucose (Negative) 01/17/17 01/17/17 Range/Units 08:40 08:46 WBC (3.5-10.8) 10^3/ul RBC (4.0-5.4) 10^6/ul Hgb (12.0-16.0) g/dl Hct (35-47) % MCV (80-97) fL MCH (27-31) pg MCHC (31-36) g/dl RDW (10.5-15) % Plt Count (150-450) 10^3/ul MPV (7.4-10.4) um3 Neut % (Auto) (38-83) % Lymph % (Auto) (25-47) % [place] % (Auto) (1-9) % Eos % (Auto) (0-6) % Baso % (Auto) (0-2) % Absolute Neuts (auto) (1.5-7.7) 10^3/ul Absolute Lymphs (auto) (1.0-4.8) 10^3/ul Absolute Monos (auto) (0-0.8) 10^3/ul Absolute Eos (auto) (0-0.6) 10^3/ul Absolute Basos (auto) (0-0.2) 10^3/ul Absolute Nucleated RBC 10^3/ul Nucleated RBC % INR (Anticoag Therapy) 1.05 (0.89-1.11) Sodium (133-145) mmol/L Potassium (3.5-5.0) mmol/L Chloride (101-111) mmol/L Carbon Dioxide (22-32) mmol/L Anion Gap (2-11) mmol/L BUN (6-24) mg/dL Creatinine (0.51-0.95) mg/dL Est GFR ( Amer) (>60) Est GFR (Non-Af Amer) (>60) BUN/Creatinine Ratio (8-20) Glucose (70-100) mg/dL Lactic Acid (0.5-2.0) mmol/L Calcium (8.6-10.3) mg/dL Total Bilirubin (0.2-1.0) mg/dL AST (13-39) U/L ALT (7-52) U/L Alkaline Phosphatase (34-104) U/L Troponin I (<0.04) ng/mL Total Protein (6.4-8.9) g/dL Albumin (3.2-5.2) g/dL Globulin (2-4) g/dL Albumin/Globulin Ratio (1-3) Urine Color Yellow Urine Appearance Clear Urine pH 6.0 (5-9) Ur Specific [place] 1.005 L (1.010-1.030) Urine Protein Negative (Negative) Urine Ketones Negative (Negative) Urine Blood 1+ H (Negative) Urine Nitrate Negative (Negative) Urine Bilirubin Negative (Negative) Urine Urobilinogen Negative (Negative) Ur Leukocyte Esterase Trace H (Negative) Urine WBC (Auto) Trace(0-5/hpf) (Absent) Urine RBC (Auto) Trace(0-2/hpf) (Absent) Ur Squamous Epith Cells Present H (Absent) Urine Bacteria 1+ H (Absent) Urine Glucose Negative (Negative) Microbiology and Other Data: Microbiology 01/17/17 10:45 Nasal Screen MRSA (PCR)(ANNIE) - Final Nasal Mrsa Negative Assess/Plan/Problems-Billing Assessment: 81 yo f with h/o diastolic CHF, DM2, R hemispheric CVA in past, COPD on 2 l 02 presented with left sided weakness due to ischemic CVA on . As per D/w Dr. Morse pt had transient left sided weakness that resolved on 01/16/17. - Patient Problems (1) CVA (cerebral vascular accident) Comment: Acute , ischemic. cont rectal ASA. Pt is still unable to swallow. echo shows neg bubble. Telem in sinus rythm. PT/OT speech consult pending. Pt is much more oriented today and dysarthia is improving Spoke with pt's niece: melida Perez ([phone], ) who is the closest family mamaber of pt's and she was not aware that pt was in hospital. Melida confirmed pt's DNR order. Carotid dopplers and MRI pending (2) COPD (chronic obstructive pulmonary disease) Comment: No evidence of acute exacerbation. Continue 02. (3) CHF (congestive heart failure) Comment: acute and diastolic at admission. will not tx with more diuretics due to pt's NPO status. EF 65% (4) Dysphagia due to recent cerebral infarction Comment: cont NPO, IVF, IV PPI. hopefully will improve in aM. (5) Diabetes Comment: BGs well controlled. Continue ISS when NPO (6) Hyperlipidemia Comment: Lipids at goal. Atorvastatin held due to NPO status. (7) Hypothyroid Comment: synthroid converted to IV when NPO (8) DVT prophylaxis Comment: Heparin SQ. (9) DNR (do not resuscitate) Status and Disposition: inpatient
[2017-01-18] MEDS: Artificial Tear OPHTH.OINT* 3.5 GM BOTH EYES SCH (22:10)
--- NOTE | 2017-01-19 03:31 | PN ---
PROGRESS NOTE: DATE OF FOLLOWUP: 01/18/17 - ROOM #440 HISTORY: No acute overnight events. The patient remains with left-sided weakness and dysarthria. When questioned, she indicates that she has been told that she has had atrial fibrillation in the past, but says this was when she was "in the hospital" and does not believe she has been on anticoagulation in the past. CURRENT MEDICATIONS: 1. Alprazolam 0.5 mg p.o. t.i.d. p.r.n. 2. Acetaminophen 650 mg p.o. q.4 hours p.r.n. 3. Albuterol nebulizers p.r.n. 4. Aspirin 300 mg p.r. daily. 5. Atorvastatin 10 mg at bedtime. 6. Budesonide inhaler. 7. Plavix 75 mg daily. 8. Famotidine 20 mg p.o. at bedtime. 9. Fluticasone nasal spray. 10. Furosemide 40 mg IV x1 given yesterday. 11. Furosemide 20 mg IV daily. 12. Heparin 5000 units subcu q.8. 13. Levothyroxine 60 mcg daily. 14. Morphine 1 mg IV q.4 p.r.n. 15. Pantoprazole 40 mg IV daily. 16. Lorazepam 0.5 mg IV given on January 17 at 2227. PHYSICAL EXAMINATION: Vital Signs: Temperature 98, blood pressure 139/80, heart rate of 90, and oxygen saturation 99% on room air. Tele was reviewed and showed some periods of tachycardia, but not obviously atrial fibrillation. On general exam, she appears much brighter than in the emergency department yesterday, sitting up in her bed. She indicates that she is scared and wants someone to sit with her at all times. She is still quite dysarthric and speech is approximately 50% understandable. On neurologic exam, she indicates the date is the . She was able to name a watch, and repeat the sentence. She has a right gaze preference and is able to just slightly cross the midline to the left. She has decreased blink to threat in the left visual field. There is left lower facial weakness and left arm and leg hemiplegia. The right arm appears full strength. The legs are edematous, but she is able to move the right foot and toes well. Sensation is intact to light touch without extinction to double simultaneous stimulation in the legs. There is no ataxia on [id number] on the right. DIAGNOSTIC STUDIES/LAB DATA: Reviewed includes a CBC, which is notable for a white count of 11.2, which is improved compared to yesterday. Her lipid profile shows triglycerides of 90, total cholesterol of 115, LDL of 49, and HDL of 47.8. Her urine culture indicates it was contaminated. She underwent a transthoracic echocardiogram and the rhythm documented on the report is atrial fibrillation. Ejection fraction is 60% to 65% and there is no patent foramen ovale. There is mild dilation of the left atrium. 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 Her echocardiogram report indicates that she was in atrial fibrillation, though I did not see this captured on telemetry. We will confirm this with cardiology. This raises concern for cardioembolic source for her presumed right middle cerebral artery stroke. She has pending carotid ultrasound. RECOMMENDATIONS: 1. If able, she should undergo MRI of the brain to determine the territory of the infarct. She has indicated that she is claustrophobic and may need low- dose benzodiazepine administered to be able to tolerate this. 2. She should be continued to be monitored on telemetry. 3. If she cannot tolerate an MRI of the brain, then followup head CT should be performed tomorrow. 4. If there are no other contraindications, then going forward, she will need anticoagulation rather than antiplatelet therapy for secondary stroke prevention. Thank you for this consultation. [id number]/[facility] #: [id number] LYNNE
[2017-01-19 04:22] VITALS: BP 152/74
[2017-01-19] MEDS: Budesonide NEB* 0.5 MG/2 ML NEB.SOLN INH SCH (07:39)
[2017-01-19] MEDS: Albuterol 2.5 MG/3 ML NEB.SOL* (0.083%) INH SCH (07:40)
[2017-01-19] MEDS: Fluticasone NASAL SPRAY 50MCG* 16 gm SPRAY BTL NASAL SCH (08:05)
--- NOTE | 2017-01-19 12:38 | DS ---
DISCHARGE SUMMARY: DATE OF ADMISSION: 01/17/17 DATE OF DISCHARGE: 01/19/17, transfer back to [facility]. PRIMARY CARE PROVIDER: Dr. Morse. DISCHARGE DIAGNOSES: 1. Dense left-sided hemiplegia due to ischemic cerebrovascular accident, which is new. 2. Acute diastolic congestive heart failure. SECONDARY DIAGNOSES: 1. History of right hemispheric stroke in the past with left-sided weakness, resolved. 2. Hypertension. 3. Diabetes. 4. Hypothyroidism. 5. History of diastolic congestive heart failure. 6. History of chronic obstructive pulmonary disease, on 2 L of oxygen at home. 7. History of endometrial hemorrhage resulting in hysterectomy in the patient' s 20s. During that time, the patient had tracheostomy placed. 8. History of tonsillectomy. 9. Inguinal hernia repair. 10. Hyperlipidemia. MEDICATIONS AT DISCHARGE: Include: 1. Alprazolam 0.5 mg p.o. t.i.d. p.r.n. 2. Acetaminophen 650 mg p.o. every 4 hours p.r.n. 3. Artificial tears on a p.r.n. basis. 4. Pulmicort nebulizer 1 nebulizer b.i.d. 5. Flonase nasal, 2 sprays nasally daily. 6. Levothyroxine 125 mcg daily. 7. Morphine oral concentrate 5 mg every 2 hours p.r.n. LABORATORY DATA AND STUDIES PERFORMED DURING THE HOSPITAL STAY: Included: On 01/18/17, white blood cell count of 11.2, hemoglobin 10.7, hematocrit of 34, platelets of 265. Sodium is 137, potassium 3.8, chloride 97, carbon dioxide 30, BUN 17, creatinine 0.91. Transthoracic echocardiogram showed EF of 60% to 65%, with mild pulmonary hypertension. Bubble study was negative. Brain CT obtained on admission, impression: "Chronic ischemic changes without change since previous exam of 09/21/15." Portable chest x-ray obtained on admission, impression: "Cardiomegaly with likely mild vascular congestion." CONSULTATIONS DURING THE HOSPITAL STAY: Included Dr. Flynn from Neurology. HOSPITALIZATION COURSE: Nelli Mcfadden is an 81-year-old female with a history of chronic above mentioned condition, who had been a resident of [facility] for quite some time now and who presented to the hospital after new left-sided weakness. The patient also was in respiratory compromise and required initial diuresis for acute diastolic CHF. The patient was diagnosed with new most likely right hemispheric CVA, with dense left-sided hemiplegia. The patient was also dysarthric, had left-sided hemineglect, and had problems with inability to swallow. The patient was admitted and treated in the hospital. During the hospital stay, she became more coherent and she was actually oriented x2 at the time of discharge. Nevertheless, she continued to fail swallow evaluations. The day prior to discharge, I spoke with patient's nieces , Jennifer who lives locally, and her phone number is [phone] and her home is [phone], and Jaymie who lives in [place], phone number [phone]. Both of the nieces who are the patient's only living relative confirmed the patient' s Do Not Resuscitate order. They also requested for the patient to be comfort care and be sent back to the [facility] as she would be in a more familiar environment there. Prior to the discharge Speech Therapy again evaluated the patient and noted that the patient is not safe to swallow. Nevertheless, I tried for her to have several spoons of pudding-thick ice cream and she swallowed it well. I spoke with the patient's niece, Jennifer that the patient is a serious risk of aspiration , but due to comfort care measures we can allow for her to eat if the family is okay with the risk of aspiration, and if they feel that withholding her feeding is causing more discomfort than feeding her and accepting the risk of aspiration. At this point, Ms. Rodriguez agreed that the patient would prefer to be fed, even at the risk of aspiration. The patient is going to be placed on pudding-thick diet. At discharge, the patient is comfort care. It is recommended for the [facility] staff to call hospice for referral on patient's arrival to the [facility]. PHYSICAL EXAMINATION: At the time of discharge, blood pressure of 152/74, heart rate of 100 and regular, respiratory rate 19, oxygen saturation 98% on 5 L of oxygen via nasal cannula, temperature of 97.7. General: The patient is a pleasant 81-year-old female who is in no acute distress. The patient is significantly dysarthric, but she is oriented x2, pleasant and cooperative with evaluation. HEENT: Head is atraumatic and normocephalic, notable left-sided facial droop. Oropharynx clear. Mucosa dry. Neck: Supple. No JVD. No bruits bilaterally. Cardiovascular: Regular rate and rhythm, no murmurs. Respiratory : Rhonchi at bilateral lower lobes. Abdomen: Soft, nontender. Bowel sounds are present in all 4 quadrants. Extremities: There is bilateral leg lymphedema and venous stasis changes noted, with chronic erythema. No cellulitis noted. Neuro evaluation notable for left-sided facial droop, significant dysarthria, and left-sided hemiplegia. The patient is able to move her toes on the left side. Please note, once again, this patient is being sent back to [facility] on comfort care measures only. Please note that this is a short summary of the patient's hospital stay. Please see refer to further medical records for details. TIME SPENT: Approximately 45 minutes were spent on this patient's discharge. CC: Dr. Morse, [facility] * [id number]/[facility] #: [id number] MTDD
== END 2017-01-19 11:51 | DRG 64 ==
LOC: ED 07:40 → MEDTELE 10:32
PROVIDERS: ADMIT Internal Medicine; ATTEND Internal Medicine
DX: I63.8 Other cerebral infarction (principal); I50.33 Acute on chronic diastolic (congestive) heart failure; G81.94 Hemiplegia, unspecified affecting left nondominant side; Z99.81 Dependence on supplemental oxygen; I11.0 Hypertensive heart disease with heart failure; R29.810 Facial weakness; I89.0 Lymphedema, not elsewhere classified; Z51.5 Encounter for palliative care; R47.1 Dysarthria and anarthria; Z66 Do not resuscitate; I87.8 Other specified disorders of veins; E78.5 Hyperlipidemia, unspecified; J44.9 Chronic obstructive pulmonary disease, unspecified; E03.9 Hypothyroidism, unspecified; K21.9 Gastro-esophageal reflux disease without esophagitis; H53.462 Homonymous bilateral field defects, left side; R13.10 Dysphagia, unspecified; E11.9 Type 2 diabetes mellitus without complications; Z79.4 Long term (current) use of insulin; Z79.02 Long term (current) use of antithrombotics/antiplatelets; Z82.49 Family history of ischemic heart disease and other diseases of the circulatory system; Z88.8 Allergy status to other drugs, medicaments and biological substances; Z86.73 Personal history of transient ischemic attack (TIA), and cerebral infarction without residual deficits
CPT/HCPCS: 36415; 70450; 71010; 80048; 80053; 80061; 81003; 81015; 83605; 84484; 85025; 85610; 87086; 87641; 93005; 93306; 94640; 94760; A9270-GY; J1644; J1940; J2060; J2270